=== PATIENT | male | born 1990 | race Hispanic/Latino ===

== ENCOUNTER 2020-04-12 16:56 | Emergency (ER) | payer MEDICAID, OTHER, SELFPAY ==
[~2020-04-12 16:56] MED LIST: Azithromycin 200 MG/5 ML Oral Suspension ONE
[2020-04-12] MEDS ORDERED: Boostrix 0.5 ML (Tdap) VIAL ONE (18:05)
[2020-04-12] MEDS ORDERED: Azithromycin 200 MG/5 ML Oral Suspension ONE (18:07)
== END 2020-04-12 18:22 | disposition home or self-care (01) ==
LOC: MADERS 16:56
DX: K04.7 Periapical abscess without sinus (principal); K02.9 Dental caries, unspecified; Q90.9 Down syndrome, unspecified; R00.0 Tachycardia, unspecified
CPT/HCPCS: 90471; 90715; 96372; J1040